=== PATIENT | female | born 1975 | race Caucasian/White ===

== ENCOUNTER 2021-08-31 16:58 | Emergency (ER) | payer MEDICAID, OTHER ==
[~2021-08-31] VITALS: Ht 157.5 cm; Wt 52.0 kg
[2021-08-31 17:22] VITALS: BP 101/30
== END 2021-08-31 22:56 | disposition left against medical advice (07) ==
LOC: ER 16:58
DX: Z53.21 Procedure and treatment not carried out due to patient leaving prior to being seen by health care provider (principal)